=== PATIENT | male | born 1955 | race Caucasian/White ===

== ENCOUNTER → 2016-11-22 | Day surgery (SDC) | payer OTHER ==
[~2016-11-22] MED LIST: DICLOFENAC PO; LISINOPRIL10 MG PO; MOTRIN PO; NAPROSYN500 MG PO; OMEPRAZOLE20 M1 PO; PREVACID PO; PRILOSEC20 MG PO; VOLTAREN75 MG PO; ZITHROMAX1 G/PKT PO
--- NOTE | ~2016-11-22 | OR ---
Unit #: [id number] #: [id number] Patient: SARY WILLAMS [id number] [address] [place], [place] [address] [id number] O MR#: [id number] NAME: SARY WILLAMS. ROOM: Date of Procedure: 11/22/2016 Admission Date: 11/22/2016 Surgeon: Gianfranco Ferreira M.D. : 1955 Attending Physician: Gianfranco Ferreira M.D. Primary Care Physician: Paul Landa M.D. OPERATIVE REPORT PRIMARY CARE PHYSICIAN Paul Landa M.D. PREOPERATIVE DIAGNOSIS Colorectal cancer screening in an average-risk patient. PROCEDURE PERFORMED Colonoscopy up to cecum with excellent preparation and good visualization. POSTOPERATIVE DIAGNOSES Completely normal examination up to cecum. The quality of the prep was excellent. The patient did not have any polyps nor any diverticula or hemorrhoids. RECOMMENDATIONS Repeat colonoscopy in 10 years. SEDATION USED MAC. DESCRIPTION OF PROCEDURE Following detailed explanation of the potential risks and complications of a colonoscopy, namely perforation, bleeding, and complications related to sedation, the patient was brought to GI lab and laid in the left lateral decubitus position. A digital rectal examination was performed, which was normal. Lubricated tip of the Olympus video colonoscope was inserted through the anus and advanced under direct vision. The scope was advanced and passed up to sigmoid into descending colon. No diverticula were seen in this area. The scope tip was then navigated all the way up to cecum with visualization of the ileocecal valve and the appendiceal orifice. Preparation was excellent with good visualization and photodocumentation was obtained. Successive segments of the colonic mucosa were examined upon withdrawal and appeared unremarkable. There being no polyps, mass lesions, AVMs, or diverticula. The patient did not have any hemorrhoids at anal verge. The scope was then withdrawn. The patient returned to the recovery area. He tolerated the procedure without any postprocedure complications. Dictated by... Gianfranco Ferreira M.D. Unit #: [id number] #: [id number] Patient: SARY WILLAMS NARCISA/dena TD: 11/23/2016 00:29 JOB #: [id number] OPERATIVE REPORT X Gianfranco Ferreira MD PROCEDURE OPERATIVE NOTE
== END | disposition home or self-care (01) ==
LOC: COPS 11:48
DX: Z12.11 Encounter for screening for malignant neoplasm of colon (principal); K21.9 Gastro-esophageal reflux disease without esophagitis; I10 Essential (primary) hypertension; E66.01 Morbid (severe) obesity due to excess calories; Z90.49 Acquired absence of other specified parts of digestive tract; Z98.890 Other specified postprocedural states